=== PATIENT | male | born 1990 | race Caucasian/White ===

== ENCOUNTER 2019-11-05 13:27 | Emergency (ER) | payer BC ==
[~2019-11-05] VITALS: Ht 193 cm; Wt 89.4 kg
== END 2019-11-05 15:36 | disposition home or self-care (01) ==
LOC: ER 13:27
DX: S01.82XA Laceration with foreign body of other part of head, initial encounter (principal); W18.09XA Striking against other object with subsequent fall, initial encounter; Y93.89 Activity, other specified; Y92.59 Other trade areas as the place of occurrence of the external cause; Y99.8 Other external cause status

== ENCOUNTER → 2024-06-04 | Emergency (ER) | payer OTHER ==
[~2024-06-04] VITALS: Ht 190.5 cm; Wt 93.4 kg
== END | disposition home or self-care (01) ==
LOC: ER 10:37
DX: S61.209A Unspecified open wound of unspecified finger without damage to nail, initial encounter (principal); W26.0XXA Contact with knife, initial encounter; Y93.89 Activity, other specified; Y92.89 Other specified places as the place of occurrence of the external cause; Y99.8 Other external cause status